=== PATIENT | male | born 1935 | race Caucasian/White ===

== ENCOUNTER 2016-08-29 09:57 | Inpatient (IN) | payer MEDICARE ==
[2016-08-29] MEDS ORDERED: SODIUM CHLORIDE 0.9% 1,000 ML IV STA ×2 (10:46)
--- NOTE | 2016-08-29 11:18 | ED ---
General Adult HPI - General Chief complaint: Recheck/Abnormal Lab/Rx Stated complaint: low BP, syncope Time Seen by Provider: 08/29/16 10:26 Source: family, RN notes reviewed, old records reviewed Mode of arrival: wheelchair Limitations: no limitations - History of Present Illness Initial comments: This is an 80-year-old male here for evaluation. Patient is brought in the ER for evaluation of Altered mental status weakness and falls. Patient suffers from dementia, no recent medications. No known fevers per family. Patient is unable to give accurate history secondary to clinical condition, history obtained from family and chart - Related Data Home Medications Medication Instructions Recorded Confirmed Alfuzosin HCl [Alfuzosin HCl ER] 10 mg PO HS 08/29/16 08/29/16 Apixaban [Eliquis] 2.5 mg PO BID 08/29/16 08/29/16 Atorvastatin Calcium [Lipitor] 20 mg PO HS 08/29/16 08/29/16 Finasteride [Proscar] 5 mg PO DAILY 08/29/16 08/29/16 LORazepam [Ativan] 1 mg PO HS 08/29/16 08/29/16 Lutein 20 mg PO DAILY 08/29/16 08/29/16 Memantine [Namenda] 10 mg PO DAILY 08/29/16 08/29/16 Sertraline HCl [Zoloft] 100 mg PO HS 08/29/16 08/29/16 Allergies Allergy/AdvReac Type Severity Reaction Status Date / Time No Known Allergies Allergy Verified 08/29/16 11:02 Review of Systems ROS Statement: Those systems with pertinent positive or pertinent negative responses have been documented in the HPI. ROS Other: All systems not noted in ROS Statement are negative. Past Medical History Past Medical History: Atrial Fibrillation, Hyperlipidemia Additional Past Medical History / Comment(s): incontinent, dementia History of Any Multi-Drug Resistant Organisms: None Reported Past Surgical History: Ablation Past Psychological History: Depression Smoking Status: Former smoker Past Alcohol Use History: None Reported Past Drug Use History: None Reported General Exam Limitations: no limitations General appearance: alert, in no apparent distress Head exam: Present: atraumatic, normocephalic, normal inspection Eye exam: Present: normal appearance, PERRL, EOMI. Absent: scleral icterus, conjunctival injection, periorbital swelling ENT exam: Present: normal exam, mucous membranes moist Neck exam: Present: normal inspection. Absent: tenderness, meningismus, lymphadenopathy Respiratory exam: Present: normal lung sounds bilaterally. Absent: respiratory distress, wheezes, rales, rhonchi, stridor Cardiovascular Exam: Present: regular rate, normal rhythm, normal heart sounds. Absent: systolic murmur, diastolic murmur, rubs, gallop, clicks GI/Abdominal exam: Present: soft, normal bowel sounds. Absent: distended, tenderness, guarding, rebound, rigid Extremities exam: Present: normal inspection, full ROM, normal capillary refill. Absent: tenderness, pedal edema, joint swelling, calf tenderness Back exam: Present: normal inspection Neurological exam: Present: alert, oriented X3, CN II-XII intact Psychiatric exam: Present: normal affect, normal mood Skin exam: Present: warm, dry, intact, normal color. Absent: rash Course Vital Signs 08/29/16 08/29/16 08/29/16 10:00 10:25 11:03 Temperature 97.6 F Pulse Rate 97 90 79 Respiratory 18 18 16 Rate Blood Pressure 90/63 117/70 120/84 O2 Sat by Pulse 96 100 97 Oximetry 08/29/16 11:54 Temperature Pulse Rate 95 Respiratory 16 Rate Blood Pressure 132/87 O2 Sat by Pulse 97 Oximetry - Reevaluation(s) Reevaluation #1: 08/29/16 12:46 Patient is showing no significant clinical improvement EKG Findings - EKG Comments: EKG Findings:: EKG shows atrial fibrillation rate of 72, QRS 96, QTC 396 Medical Decision Making - Medical Decision Making 80-year-old male here for evaluation. Patient's altered mental status weakness and falls, significant urinary tract infection, will be admitted for IV antibiotics, IV resuscitation and PTOT - Lab Data Result diagrams: 08/29/16 11:17 08/29/16 11:17 Lab Results 08/29/16 08/29/16 08/29/16 Range/Units 11:17 11:17 11:17 WBC 8.5 (3.8-10.6) k/uL RBC 5.12 (4.30-5.90) m/uL Hgb 16.0 (13.0-17.5) gm/dL Hct 47.0 (39.0-53.0) % MCV 91.9 (80.0-100.0) fL MCH 31.2 (25.0-35.0) pg MCHC 34.0 (31.0-37.0) g/dL RDW 14.0 (11.5-15.5) % Plt Count 146 L (150-450) k/uL Neutrophils % 83 % Lymphocytes % 10 % Monocytes % 5 % Eosinophils % 1 % Basophils % 0 % Neutrophils # 7.0 (1.3-7.7) k/uL Lymphocytes # 0.9 L (1.0-4.8) k/uL Monocytes # 0.5 (0-1.0) k/uL Eosinophils # 0.1 (0-0.7) k/uL Basophils # 0.0 (0-0.2) k/uL PT (9.0-12.0) sec INR (<1.1) APTT (22.0-30.0) sec Sodium 141 (137-145) mmol/L Potassium 4.1 (3.5-5.1) mmol/L Chloride 109 H (98-107) mmol/L Carbon Dioxide 23 (22-30) mmol/L Anion Gap 9 mmol/L BUN 19 (9-20) mg/dL Creatinine 0.96 (0.66-1.25) mg/dL Est GFR (MDRD) Af Amer >60 (>60 ml/min/1.73 sqM) Est GFR (MDRD) Non-Af >60 (>60 ml/min/1.73 sqM) Glucose 116 H (74-99) mg/dL Calcium 8.8 (8.4-10.2) mg/dL Phosphorus 3.4 (2.5-4.5) mg/dL Magnesium 2.2 (1.6-2.3) mg/dL Total Bilirubin 1.0 (0.2-1.3) mg/dL AST 16 L (17-59) U/L ALT 26 (21-72) U/L Alkaline Phosphatase 81 (38-126) U/L Total Creatine Kinase 41 L (55-170) U/L CK-MB (CK-2) 1.1 (0.0-2.4) ng/mL CK-MB (CK-2) Rel Index 2.7 Troponin I <0.012 (0.000-0.034) ng/mL Total Protein 6.4 (6.3-8.2) g/dL Albumin 3.7 (3.5-5.0) g/dL Urine Color Urine Appearance (Clear) Urine pH (5.0-8.0) Ur Specific [place] (1.001-1.035) Urine Protein (Negative) Urine Glucose (UA) (Negative) Urine Ketones (Negative) Urine Blood (Negative) Urine Nitrite (Negative) Urine Bilirubin (Negative) Urine Urobilinogen (<2.0) mg/dL Ur Leukocyte Esterase (Negative) Urine RBC (0-5) /hpf Urine WBC (0-5) /hpf Urine WBC Clumps (None) /hpf Ur Squamous Epith Cells (0-4) /hpf Hyaline Casts (0-2) /lpf Urine Mucus (None) /hpf 08/29/16 08/29/16 Range/Units 11:17 11:50 WBC (3.8-10.6) k/uL RBC (4.30-5.90) m/uL Hgb (13.0-17.5) gm/dL Hct (39.0-53.0) % MCV (80.0-100.0) fL MCH (25.0-35.0) pg MCHC (31.0-37.0) g/dL RDW (11.5-15.5) % Plt Count (150-450) k/uL Neutrophils % % Lymphocytes % % Monocytes % % Eosinophils % % Basophils % % Neutrophils # (1.3-7.7) k/uL Lymphocytes # (1.0-4.8) k/uL Monocytes # (0-1.0) k/uL Eosinophils # (0-0.7) k/uL Basophils # (0-0.2) k/uL PT 11.2 (9.0-12.0) sec INR 1.1 (<1.1) APTT 25.3 (22.0-30.0) sec Sodium (137-145) mmol/L Potassium (3.5-5.1) mmol/L Chloride (98-107) mmol/L Carbon Dioxide (22-30) mmol/L Anion Gap mmol/L BUN (9-20) mg/dL Creatinine (0.66-1.25) mg/dL Est GFR (MDRD) Af Amer (>60 ml/min/1.73 sqM) Est GFR (MDRD) Non-Af (>60 ml/min/1.73 sqM) Glucose (74-99) mg/dL Calcium (8.4-10.2) mg/dL Phosphorus (2.5-4.5) mg/dL Magnesium (1.6-2.3) mg/dL Total Bilirubin (0.2-1.3) mg/dL AST (17-59) U/L ALT (21-72) U/L Alkaline Phosphatase (38-126) U/L Total Creatine Kinase (55-170) U/L CK-MB (CK-2) (0.0-2.4) ng/mL CK-MB (CK-2) Rel Index Troponin I (0.000-0.034) ng/mL Total Protein (6.3-8.2) g/dL Albumin (3.5-5.0) g/dL Urine Color Yellow Urine Appearance Cloudy (Clear) Urine pH 5.5 (5.0-8.0) Ur Specific [place] 1.019 (1.001-1.035) Urine Protein Trace H (Negative) Urine Glucose (UA) Negative (Negative) Urine Ketones Negative (Negative) Urine Blood Small H (Negative) Urine Nitrite Negative (Negative) Urine Bilirubin Negative (Negative) Urine Urobilinogen <2.0 (<2.0) mg/dL Ur Leukocyte Esterase Large H (Negative) Urine RBC 46 H (0-5) /hpf Urine WBC >182 H (0-5) /hpf Urine WBC Clumps Few H (None) /hpf Ur Squamous Epith Cells <1 (0-4) /hpf Hyaline Casts 3 H (0-2) /lpf Urine Mucus Few H (None) /hpf - Radiology Data Radiology results: report reviewed, image reviewed Disposition Clinical Impression: UTI (urinary tract infection), Altered mental status Disposition: ADMITTED IP TO THIS HOSP Condition: Fair Referrals: Dm Long MD [Primary Care Provider] - 1-2 days
--- NOTE | 2016-08-29 11:43 | XR ---
EXAMINATION TYPE: XR chest 2V DATE OF EXAM: 08/29/2016 11:38 AM HISTORY: Weakness. REFERENCE: Previous study dated 08/02/2010. FINDINGS: The heart is enlarged. There is some atelectatic change at both lung bases. Pleural spaces appear clear. IMPRESSION: 1. CARDIOMEGALY. 2. BIBASILAR ATELECTASIS.
--- NOTE | 2016-08-29 11:43 | XR ---
EXAMINATION TYPE: XR pelvis AP view DATE OF EXAM: 08/29/2016 11:38 AM CLINICAL HISTORY: pain TECHNIQUE: Single view the pelvis is submitted. FINDINGS: No evidence for fracture, dislocation or bony lesion. Joint spaces are well-preserved. S I joints appear symmetric. IMPRESSION: 1. No acute fracture or dislocation seen. ICD 10 NO FRACTURE, INITIAL EVALUATION
[2016-08-29 11:45] LABS: Basophils % (A) 0 %; CH 32.1; CHCM 35.1; Eosinophils # (A) 0.1 k/uL (0-0.7); Eosinophils % (A) 1 %; HDW 2.84; Luc # (Auto) 0.07; Luc % (Auto) 1; Lymphocytes # (A) 0.9 k/uL (1.0-4.8); Lymphocytes % (A) 10 %; MCH 31.2 pg (25.0-35.0); MCV 91.9 fL (80.0-100.0); Mean Platelet Volume 7.3; Monocytes # (A) 0.5 k/uL (0-1.0); Monocytes % (A) 5 %; Neutrophils % (A) 83 %; RBC 5.12 m/uL (4.30-5.90); WBC 8.5 k/uL (3.8-10.6); WBC (Perox) 8.05
[2016-08-29 11:52] LABS: ALT 26 U/L (21-72); AST 16 U/L (17-59); Alkaline Phosphatase 81 U/L (38-126); Anion Gap 9 mmol/L; Blood Urea Nitrogen 19 mg/dL (9-20); Calcium 8.8 mg/dL (8.4-10.2); Carbon Dioxide 23 mmol/L (22-30); Chloride 109 mmol/L (98-107); Glucose 116 mg/dL (74-99); Magnesium 2.2 mg/dL (1.6-2.3); Non-African American GFR(MDRD) >60 (>60 ml/min/1.73 sqM); Phosphorous 3.4 mg/dL (2.5-4.5); Potassium 4.1 mmol/L (3.5-5.1); Sodium 141 mmol/L (137-145); Total Protein 6.4 g/dL (6.3-8.2)
--- NOTE | 2016-08-29 11:55 | CT ---
EXAMINATION TYPE: CT brain wo con DATE OF EXAM: 08/29/2016 11:46 AM COMPARISON: Previous study dated 08/03/2010 HISTORY: Low blood pressure, syncope CT DLP: 1031.6 mGycm Automated exposure control for dose reduction was used. FINDINGS: There are generalized changes of sulcal prominence and ventriculomegaly, compatible with atrophic pop nge. There is mild, diffuse periventricular white matter lucency, compatible with chronic ischemic ch desiree. There is no acute focal lesion, mass effect or midline shift identified. I do not see evidence of intracranial blood. Visualized portions of the paranasal sinuses and mastoids are clear. No depressed skull fracture is s een. IMPRESSION: 1. NO ACUTE INTRACRANIAL ABNORMALITY. 2. ATROPHIC CHANGE. 3. CHRONIC WHITE MATTER ISCHEMIC CHANGE.
[2016-08-29 12:16] LABS: Creatine Kinase 41 U/L (55-170)
[2016-08-29 12:19] LABS: INR 1.1 (<1.1); Partial Thromboplastin Time 25.3 sec (22.0-30.0); Prothrombin Time 11.2 sec (9.0-12.0)
[2016-08-29 12:27] LABS: Creatine Kinase MB 1.1 ng/mL (0.0-2.4); Troponin I <0.012 ng/mL (0.000-0.034)
[2016-08-29 12:41] LABS: Appearance,Urine Cloudy (Clear); Bilirubin,Urine Negative (Negative); Glucose,Urine (UA) Negative (Negative); Ketones,Urine Negative (Negative); Leukocyte Esterase,Urine Large (Negative); Mucus,Urine Few /hpf; Nitrite,Urine Negative (Negative); PH, Urine 5.5 (5.0-8.0); Particle Count 4869; Protein,Urine Trace (Negative); RBC,Urine 46 /hpf (0-5); Specific Gravity,Urine 1.019 (1.001-1.035); Squamous Epithelial Cell,Urine <1 /hpf (0-4); UA Billing (MACRO vs. MICRO) MICRO; Urobilinogen,Urine <2.0 mg/dL (<2.0); WBC,Urine >182 /hpf (0-5)
[2016-08-29] MEDS ORDERED: SODIUM CHLORIDE 0.9% 1,000 ML IV ONE (12:46)
[2016-08-29 14:30] VITALS: BMI 28.7
--- NOTE | 2016-08-29 20:02 | P.HPIM ---
History of Present Illness H&P Date: 08/29/16 Chief Complaint: falls 80 yr old with h/o of A fib on anticoagulation comes into the hospital after sustaining falls. Pt apparently was independent of all adls till a few months ago, he has gotten progressively worse over the last few weeks. Pt does appear to have a remote diagnosis of dementia according to the report to the RN. Pt was living with his son, who is currently in rehab. Due to falls, and inability to perform his adls, pt was triaged to the hospital. Pt was found to have an abnormal UA. Family stated his personality has changed, and appears more slow. CT scan of head was negative EKG reveals atrial fib. pelvic xray was negative Pt denies having any additional complaints however is non consistent of his answers. Review of Systems ROS unobtainable: due to mental status Past Medical History Past Medical History: Atrial Fibrillation, Hyperlipidemia Additional Past Medical History / Comment(s): incontinent, dementia History of Any Multi-Drug Resistant Organisms: None Reported Past Surgical History: Ablation Additional Past Surgical History / Comment(s): laser eye surgery with lens implants; lower back surgery Past Anesthesia/Blood Transfusion Reactions: No Reported Reaction Past Psychological History: Depression Smoking Status: Former smoker Past Alcohol Use History: None Reported Past Drug Use History: None Reported Medications and Allergies Home Medications Medication Instructions Recorded Confirmed Type Alfuzosin HCl [Alfuzosin HCl ER] 10 mg PO HS 08/29/16 08/29/16 History Apixaban [Eliquis] 2.5 mg PO BID 08/29/16 08/29/16 History Atorvastatin Calcium [Lipitor] 20 mg PO HS 08/29/16 08/29/16 History Finasteride [Proscar] 5 mg PO DAILY 08/29/16 08/29/16 History LORazepam [Ativan] 1 mg PO HS 08/29/16 08/29/16 History Lutein 20 mg PO DAILY 08/29/16 08/29/16 History Memantine [Namenda] 10 mg PO DAILY 08/29/16 08/29/16 History Sertraline HCl [Zoloft] 100 mg PO HS 08/29/16 08/29/16 History Allergies Allergy/AdvReac Type Severity Reaction Status Date / Time No Known Allergies Allergy Verified 08/29/16 11:02 Physical Exam Vitals: Vital Signs Temp Pulse Resp BP Pulse Ox 08/29/16 15:00 97.7 F 91 18 139/89 98 08/29/16 13:45 97.6 F 67 20 142/78 96 Intake and Output 08/29/16 08/29/16 08/29/16 06:59 14:59 22:59 Other: Voiding Method Toilet Diaper Incontinent # Voids 1 1 Weight 85.729 kg Patient Weight 08/30/16 06:59 Weight 85.729 kg - Constitutional General appearance: no acute distress - EENT Eyes: EOMI, PERRLA - Neck Neck: normal ROM - Respiratory Respiratory: bilateral: CTA, negative: dullness, rales, rhonchi, wheezing - Cardiovascular Rhythm: irregularly irregular Abnormal Heart Sounds: systolic murmur - Gastrointestinal General gastrointestinal: normal bowel sounds, no organomegaly, soft - Neurologic Neurologic: CNII-XII intact - Musculoskeletal Musculoskeletal: generalized weakness - Psychiatric answers some questions appropriately alert to place, unable to make medical decisions. Results CBC & Chem 7: 08/29/16 11:17 08/29/16 11:17 Thrombosis Risk Factor Assmnt - Choose All That Apply Any of the Below Risk Factors Present?: No Each Risk Factor Represents 3 Points: Age 75 years or older Thrombosis Risk Factor Assessment Total Risk Factor Score: 3 Thrombosis Risk Factor Assessment Level: Moderate Risk Assessment and Plan Plan: Sepsis sec to UTI, causing mental status changes, acute metabolic encephalopathy chronic atrial fib. HTN Dyslipidemia Thrombocytopenia Remote CVA Cardiomegaly. Plan ivf Pt/OT rocephin await urine cultures telemetry monitering Underlying dementia Hold off on eliquis, as pt has had falls recently, risks outweight benefits. aspirin 325mg to be started repeat cxr in the am DVT prophylaxis.
[2016-08-29] MEDS: ATORVASTATIN 20 MG TAB PO SCH (20:56)
[2016-08-29] MEDS: LORazepam 1 MG TAB PO SCH (20:58)
[2016-08-29] MEDS: SERTRALINE 100 MG TAB PO SCH (20:58)
[2016-08-30] MEDS ORDERED: QUEtiapine 25 MG TAB PO PRN (00:31)
[2016-08-30] MEDS: ENOXAPARIN 40 MG/0.4 ML SYRINGE SQ SCH (09:16)
[2016-08-30] MEDS: FINASTERIDE 5 MG TAB PO SCH (09:16)
[2016-08-30] MEDS: ASPIRIN 325 MG TAB PO SCH (09:16)
[2016-08-30] MEDS: MEMANTINE 10 MG TAB PO SCH (09:17)
--- NOTE | 2016-08-30 09:27 | XR ---
EXAMINATION TYPE: XR chest 1V portable DATE OF EXAM: 08/30/2016 9:03 AM COMPARISON: Prior chest x-ray one August 2016 HISTORY: Difficulty breathing TECHNIQUE: Single frontal view of the chest is obtained. FINDINGS: No significant interval change. Heart size is stable and borderline enlarged. Posterior ri ght seventh rib fracture is stable and likely chronic. No pneumonia, pneumothorax, or pleural effusio n is evident. IMPRESSION: Cardiomegaly is stable.
[2016-08-30 09:30] LABS: ALT 29 U/L (21-72); AST 22 U/L (17-59); Alkaline Phosphatase 86 U/L (38-126); Anion Gap 11 mmol/L; Basophils % (A) 0 %; Blood Urea Nitrogen 14 mg/dL (9-20); CH 31.6; CHCM 34.4; Calcium 8.6 mg/dL (8.4-10.2); Carbon Dioxide 18 mmol/L (22-30); Chloride 115 mmol/L (98-107); Eosinophils # (A) 0.1 k/uL (0-0.7); Eosinophils % (A) 2 %; Glucose 118 mg/dL (74-99); HCT 44.8 % (39.0-53.0); HDW 2.84; Luc # (Auto) 0.11; Luc % (Auto) 1; Lymphocytes # (A) 1.2 k/uL (1.0-4.8); Lymphocytes % (A) 14 %; MCH 30.9 pg (25.0-35.0); MCHC 33.5 g/dL (31.0-37.0); MCV 92.2 fL (80.0-100.0); Monocytes # (A) 0.4 k/uL (0-1.0); Monocytes % (A) 5 %; Neutrophils # (A) 6.7 k/uL (1.3-7.7); Neutrophils % (A) 78 %; Non-African American GFR(MDRD) >60 (>60 ml/min/1.73 sqM); RBC 4.87 m/uL (4.30-5.90); RDW 13.8 % (11.5-15.5); Sodium 144 mmol/L (137-145); Total Bilirubin 0.9 mg/dL (0.2-1.3); Total Protein 6.4 g/dL (6.3-8.2); WBC 8.6 k/uL (3.8-10.6); WBC (Perox) 8.68
--- NOTE | 2016-08-30 11:53 | CDI ---
In responding to this query, please exercise your independent professional judgment. The [facility] Coding Staff and Clinical Documentation Specialists appreciate your assistance in clarifying documentation, maintaining compliance with coding guidelines, accurately documenting patients condition and capturing severity of illness. The fact that a question is asked does not imply that any particular answer is desired or expected. Communication forms are a method of clarifying documentation and are not made part of the Legal Health Record. Thank you in advance for your clarification. Last Revision, June 2015 Zahraa Galindo [address] [place] [address] Documentation Clarification Form Date: 08/30/2016 11:31:00 AM From: Dora Alejandro RN, CDS Admit Date: 08/29/2016 12:47:00 PM Patient Name: Tariq Liriano Visit Number: [id number] Dr. Mendel Ye, Sepsis secondary to UTI is documented in the H&P Patient history/risk factors: 80 y/o History of Dementia, A-fib, Incontinence Clinical Indicators: SIRS Criteria: WBC: 8.5, VS: 97.6 97 18 90/63 96ra, UA Large Leuk Libra, >182 WBC, BUN/CR/GFR 19/0.96/>60 Radiology: CXR: Bibasilar Atelectasis, Cardiomegaly stable, No active process, Other Clinical Indicators: Metabolic Encephalopathy, Urinary Tract Infection Treatment: NS bolus and NS@100 in ED, IV Rocephin, Please document confirmation of the diagnosis of Sepsis in progress note and/or discharge summary, along with its associated clinical indicators (i.e., signs, symptoms, findings, treatments, monitoring). If this condition was ruled out or documented in error, please indicate in your progress notes and/or discharge summary. FYI: Press F11 to launch patient chart Place X here if this finding has no clinical significance, is not applicable or if you are not able to provide any additional documentation. TAMARAD
--- NOTE | 2016-08-30 15:11 | P.PN ---
Subjective 80 yr old with h/o of A fib on anticoagulation comes into the hospital after sustaining falls. Pt apparently was independent of all adls till a few months ago, he has gotten progressively worse over the last few weeks. Pt does appear to have a remote diagnosis of dementia according to the report to the RN. Pt was living with his son, who is currently in rehab. Due to falls, and inability to perform his adls, pt was triaged to the hospital. Pt was found to have an abnormal UA. Family stated his personality has changed, and appears more slow. CT scan of head was negative EKG reveals atrial fib. pelvic xray was negative Pt denies having any additional complaints however is non consistent of his answers. 08/30/16 No new overnight events pt was confused, climbing over the rails However during my eval pt was answering most questions appropriately denies having any complaints. Objective - Vital Signs Vital signs: Vital Signs Temp 98.6 F 08/30/16 07:00 Pulse 77 08/30/16 07:00 Resp 16 08/30/16 07:00 BP 116/58 08/30/16 07:00 Pulse Ox 95 08/30/16 07:00 Intake & Output 08/29/16 08/30/16 08/30/16 18:59 06:59 18:59 Weight 85.729 kg Other: Voiding Method Toilet Toilet Diaper Diaper Incontinent Incontinent # Voids 1 4 2 # Bowel Movements 1 - Exam Physical exam Gen. appearance oriented 3 in no distress does not appear to be in distress neck supple no JVD Lungs good air entry clear to auscultation no rhonchi or wheezing Heart S1-S2 heard regular rate and rhythm no murmurs appreciated Abdomen is soft nontender no organomegaly bowel sounds are intact Neurologically cranial nerves II-12 grossly intact no focal motor or sensory deficits noted Skin no abnormalities appreciated - Labs CBC & Chem 7: 08/30/16 08:45 08/30/16 08:45 Labs: Abnormal Lab Results - Last 24 Hours (Table) 08/30/16 Range/Units 08:45 Chloride 115 H (98-107) mmol/L Carbon Dioxide 18 L (22-30) mmol/L Glucose 118 H (74-99) mg/dL TSH 6.760 H (0.465-4.680) mIU/L Assessment and Plan Plan: Sepsis sec to UTI with concern for mental status changes and weakness causing falls. chronic atrial fib. HTN Dyslipidemia Thrombocytopenia Remote CVA Cardiomegaly. Plan aspirin 325mg to be started HOld off on eliquis. multiple falls recently. change seroquel 50mg bedtime chest x-ray reviewed DC IV fluids and encourage oral intake PT OT continue with IV antibiotics patient's clinical status appears somewhat improved is able to tolerate ambulation and discharge in the next 24 hours DVT prophylaxis.
[2016-08-30] MEDS: LORazepam 0.5 MG TAB PO PRN (16:39)
[2016-08-30] MEDS ORDERED: QUEtiapine 50 MG TAB PO PRN (21:00)
[2016-08-30] MEDS: ATORVASTATIN 20 MG TAB PO SCH (21:39)
[2016-08-30] MEDS: SERTRALINE 100 MG TAB PO SCH (21:39)
[2016-08-30] MEDS: LORazepam 1 MG TAB PO SCH (21:39)
[2016-08-30] MEDS ORDERED: HALOPERIDOL LACTATE 5 MG/ML 1 ML VIAL IM PRN (22:51)
[2016-08-31] MEDS: LORazepam 0.5 MG TAB PO PRN (01:46)
[2016-08-31] MEDS: MEMANTINE 10 MG TAB PO SCH (09:23)
[2016-08-31] MEDS: FINASTERIDE 5 MG TAB PO SCH (09:23)
[2016-08-31] MEDS: ASPIRIN 325 MG TAB PO SCH (09:23)
[2016-08-31] MEDS: ENOXAPARIN 40 MG/0.4 ML SYRINGE SQ SCH (09:23)
[2016-08-31 09:40] LABS: ALT 32 U/L (21-72); AST 22 U/L (17-59); Alkaline Phosphatase 92 U/L (38-126); Anion Gap 8 mmol/L; Blood Urea Nitrogen 14 mg/dL (9-20); Calcium 8.8 mg/dL (8.4-10.2); Carbon Dioxide 22 mmol/L (22-30); Chloride 112 mmol/L (98-107); Glucose 96 mg/dL (74-99); Non-African American GFR(MDRD) >60 (>60 ml/min/1.73 sqM); Potassium 3.8 mmol/L (3.5-5.1); Sodium 142 mmol/L (137-145); Total Protein 6.5 g/dL (6.3-8.2)
--- NOTE | 2016-08-31 14:42 | P.CN ---
Psychiatric Consult - . Consult date: 08/31/16 Consult:: IDENTIFYING DATA: Mr. Liriano is 80-year-old male has a history of a dementia. He was admitted to medicine service with increasing confusion and falling. Medicine consulted psychiatry for evaluation of agitation associated with his dementia. HISTORY OF PRESENT ILLNESS: I reviewed the medical record and attempted to interview Mr. Liriano. He was confused and unable to give an explanation for his hospitalization. He was unable to provide much information about his past medical history. He talked about having "something in my veins .... not drugs. I don't use drugs." I called his granddaughter Jj Hinds. I also spoke with his son, Rony Liriano, who had power of deputy county attorney. His granddaughter stated that he has a history of dementia diagnosed about 5 years ago. He has shown more impairment in self-care over the last 3 years. Her father is the primary mathematics professor is unable to provide care and supervision due to his own problems and his father's worsening confusion and agitation. Her father developed an alcohol problem and will be admitted [facility] for alcohol rehabilitation on 09/06/16. Her father was the primary mathematics professor but she would assist in caring for her grandfather when she was not working. Rony complained of his father's worsening disability and confusion. For example, he complained that his father recently placed one of his hearing aids in his mouth rather than in his ear. Jj complained that her grandfather appeared more confused and was falling when the neurologist increased the dose of Seroquel from 25 to 50 mg. The family's long- term plan is have him placed in a dementia unit. PAST PSYCHIATRIC HISTORY: His daughter stated that he has a history of depression and has taken person Zoloft "for many years". However, he is never received mental health treatment has had no psychiatric hospitalizations. SUBSTANCE USE HISTORY: She denied that he has a problem alcohol or substance use. FAMILY PSYCHIATRIC/SUBSTANCE USE HISTORY: One aunt by suicide in another aunt has a diagnosis of bipolar illness. SOCIAL HISTORY: He graduated from high school. His about 10 years ago. They had 6 children; One in infancy. He is retired and receives Social Security income. MENTAL STATUS EXAM: He presented as a casually groomed elderly male who was pleasant on approach. He was very hard of hearing and had difficulty understanding the interview questions. He made eye contact and appeared to attend to interview. He had no distinguishing features or prominent physical abnormalities. He had a blunted but bright facial expression. He is alert and oriented to person only. He showed no abnormality of psychomotor activity. He had no abnormal involuntary movements. I did not evaluate his gait. His speech was spontaneous with decreased rate and volume. He had no articulation difficulties. His affect was stable and appropriate. She did not express suicidal homicidal ideation. He denied feeling hopeless, helpless or worthless. He did not express ideas reference, paranoid ideation or delusional thoughts. His thinking was concrete and associations were coherent. We completed the Mini-Mental Status Examination. His total score was 15 consistent with severe cognitive impairment. He did not know the year, season, date, day of the week or month. He uses state, county, town and hospital ( although [facility] He was able to retain the name of 3 objects (apple, pen and umbrella) he did not remember the items after distraction exercise. He was unable to spell the word "world" backwards. He named to simple objects (pen and tea). He was unable to repeat the phrase "no if's, and said, "lots." He was able to follow three-step command. He read and followed the written instruction (close her eyes). He wrote a sentence with a subacute infarct. 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 He is showing increasing confusion at home with periods of agitation. His family is unable to safely monitor at home and are looking for placement in a long-term program. DIAGNOSIS: Deejay. 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 Discontinue lorazepam since benzodiazepines can worsen agitation and confusion and dementia patients. Namenda may be titrated up to 20 mg per day in divided doses. Consider changing Seroquel to a less sedating antipsychotic such as Zyprexa 2.5 mg at bedtime. Limit dosing of haloperidol since that may increase confusion. I would concur that he is in need of residential services. Thank you for the consult. 08/31/16 13:58
--- NOTE | 2016-08-31 16:07 | P.PN ---
Subjective 80 yr old with h/o of A fib on anticoagulation comes into the hospital after sustaining falls. Pt apparently was independent of all adls till a few months ago, he has gotten progressively worse over the last few weeks. Pt does appear to have a remote diagnosis of dementia according to the report to the RN. Pt was living with his son, who is currently in rehab. Due to falls, and inability to perform his adls, pt was triaged to the hospital. Pt was found to have an abnormal UA. Family stated his personality has changed, and appears more slow. CT scan of head was negative EKG reveals atrial fib. pelvic xray was negative Pt denies having any additional complaints however is non consistent of his answers. 08/30/16 No new overnight events pt was confused, climbing over the rails However during my eval pt was answering most questions appropriately denies having any complaints. 08/31/2016 Patient currently was having more episodes of confusion appears to be delirium at this time was given a dose of IM haloperidol overnight a sitter was at bedside denies having any additional complaints patient is able to state that he is at [facility] Objective - Vital Signs Vital signs: Vital Signs Temp 97.8 F 08/31/16 15:00 Pulse 111 H 08/31/16 15:00 Resp 20 08/31/16 15:00 BP 132/74 08/31/16 15:00 Pulse Ox 97 08/31/16 15:00 Intake & Output 08/30/16 08/31/16 08/31/16 18:59 06:59 18:59 Intake Total 500 Balance 500 Intake: Oral 500 Other: Voiding Method Toilet Diaper Incontinent # Voids 2 3 3 # Bowel Movements 1 1 - Exam Physical exam Gen. appearance oriented time and place in no distress does not appear to be in distress neck supple no JVD Lungs good air entry clear to auscultation no rhonchi or wheezing Heart S1-S2 heard regular rate and rhythm no murmurs appreciated Abdomen is soft nontender no organomegaly bowel sounds are intact Neurologically cranial nerves II-12 grossly intact no focal motor or sensory deficits noted Skin no abnormalities appreciated - Labs CBC & Chem 7: 08/30/16 08:45 08/31/16 08:44 Labs: Abnormal Lab Results - Last 24 Hours (Table) 08/31/16 Range/Units 08:44 Chloride 112 H (98-107) mmol/L Assessment and Plan Plan: Sepsis sec to UTI with concern for mental status changes and weakness causing falls. chronic atrial fib. HTN Dyslipidemia Thrombocytopenia Remote CVA Cardiomegaly. Plan aspirin 325mg to be started HOld off on eliquis. multiple falls recently. Continue with psychiatry recommendations. Day with antibiotics will likely discharge the patient to NH in the next 24 hours.
[2016-08-31] MEDS ORDERED: MELATONIN 3 MG TABLET PO SCH (21:00)
[2016-08-31] MEDS ORDERED: OLANZapine 2.5 MG TAB PO SCH (21:00)
[2016-08-31] MEDS: ATORVASTATIN 20 MG TAB PO SCH (21:39)
[2016-08-31] MEDS: SERTRALINE 100 MG TAB PO SCH (21:40)
[2016-08-31 22:54] VITALS: RESP 16
[2016-09-01 07:29] VITALS: BP 159/86; PULSE 87; TEMP 97.7
[2016-09-01] MEDS: FINASTERIDE 5 MG TAB PO SCH (09:14)
[2016-09-01] MEDS: MEMANTINE 10 MG TAB PO SCH (09:14)
[2016-09-01] MEDS: ASPIRIN 325 MG TAB PO SCH (09:15)
[2016-09-01] MEDS: ENOXAPARIN 40 MG/0.4 ML SYRINGE SQ SCH (09:15)
--- NOTE | 2016-09-01 13:38 | P.DS ---
Providers Date of admission: 08/29/16 12:47 Attending physician: Ron Hallman Consults: 08/31/16 10:59 Consult Physician Routine Consulting Provider: Jerardo Cotton Reason/Comments: behaviors as associated with dementia. Do you want consulting provider notified?: Yes Primary care physician: [facility] Hospital Course: 80 yr old with h/o of A fib on anticoagulation comes into the hospital after sustaining falls. Pt apparently was independent of all adls till a few months ago, he has gotten progressively worse over the last few weeks. Pt does appear to have a remote diagnosis of dementia according to the report to the RN. Pt was living with his son, who is currently in rehab. Due to falls, and inability to perform his adls, pt was triaged to the hospital. Pt was found to have an abnormal UA. Family stated his personality has changed, and appears more slow. CT scan of head was negative EKG reveals atrial fib. pelvic xray was negative Pt denies having any additional complaints however is non consistent of his answers. 08/30/16 No new overnight events pt was confused, climbing over the rails However during my eval pt was answering most questions appropriately denies having any complaints. 08/31/2016 Patient currently was having more episodes of confusion appears to be delirium at this time was given a dose of IM haloperidol overnight a sitter was at bedside denies having any additional complaints patient is able to state that he is at [facility] - Exam Physical exam Gen. appearance oriented time and place in no distress does not appear to be in distress neck supple no JVD Lungs good air entry clear to auscultation no rhonchi or wheezing Heart S1-S2 heard regular rate and rhythm no murmurs appreciated Abdomen is soft nontender no organomegaly bowel sounds are intact Neurologically cranial nerves II-12 grossly intact no focal motor or sensory deficits noted Skin no abnormalities appreciated Assessment and Plan Plan: Sepsis sec to UTI with concern for mental status changes and weakness causing falls. T course of antibiotics with Ceftin patient appears to be improving would benefit from rehab chronic atrial fib. HTN Dyslipidemia Thrombocytopenia Remote CVA Cardiomegaly. Concern for underlying dementia, diagnosis or eval after completion of tx for Cystitis Patient Condition at Discharge: Fair Plan - Discharge Summary New Discharge Prescriptions: Cefuroxime [Ceftin] 250 mg PO BID #10 tablet OLANZapine [ZyPREXA] 2.5 mg PO HS #30 tab Discharge Medication List Atorvastatin Calcium [Lipitor] 20 mg PO HS 08/29/16 [History] Finasteride [Proscar] 5 mg PO DAILY 08/29/16 [History] Lutein 20 mg PO DAILY 08/29/16 [History] Sertraline HCl [Zoloft] 100 mg PO HS 08/29/16 [History] Aspirin 325 mg PO DAILY tab 08/31/16 [Rx] Cefuroxime [Ceftin] 250 mg PO BID #10 tablet 08/31/16 [Rx] Melatonin 3 mg PO HS tablet 09/01/16 [Rx] Memantine [Namenda] 10 mg PO DAILY #0 09/01/16 [Rx] OLANZapine [ZyPREXA] 2.5 mg PO HS #30 tab 09/01/16 [Rx] Sertraline [Zoloft] 100 mg PO HS tab 09/01/16 [Rx] Follow up Appointment(s)/Referral(s): Dm Long MD [Primary Care Provider] - 1-2 days Patient Instructions/Handouts: Urinary Tract Infection in Men (DC), Alzheimer Disease (DC) Activity/Diet/Wound Care/Special Instructions: Ambulate with assistance and walker, fall precautions. Cardiac diet. Follow up with psychiatry at [facility] [place]. Discharge Disposition: TRANSFER TO SNF/ECF
== END 2016-09-01 14:54 | DRG 871 ==
LOC: EC 09:57 → 4MS4W 12:47
PROVIDERS: ADMIT Hospitalist; ATTEND Hospitalist
DX: A41.9 Sepsis, unspecified organism (principal); G93.41 Metabolic encephalopathy; D69.6 Thrombocytopenia, unspecified; I11.9 Hypertensive heart disease without heart failure; G30.9 Alzheimer's disease, unspecified; F05 Delirium due to known physiological condition; N39.0 Urinary tract infection, site not specified; F32.9 Major depressive disorder, single episode, unspecified; F02.81 Dementia in other diseases classified elsewhere, unspecified severity, with behavioral disturbance; I48.2 Chronic atrial fibrillation; R53.1 Weakness; E78.5 Hyperlipidemia, unspecified; R29.6 Repeated falls; H91.90 Unspecified hearing loss, unspecified ear; R32 Unspecified urinary incontinence; Z87.891 Personal history of nicotine dependence; Z79.01 Long term (current) use of anticoagulants; Z79.899 Other long term (current) drug therapy; Z86.73 Personal history of transient ischemic attack (TIA), and cerebral infarction without residual deficits; Z81.8 Family history of other mental and behavioral disorders; Z81.1 Family history of alcohol abuse and dependence; Z96.1 Presence of intraocular lens; Z91.81 History of falling
CPT/HCPCS: 36415; 70450; 71010; 71020; 72170; 80053; 81001; 82550; 82553; 83735; 84100; 84439; 84443; 84484; 85025; 85610; 85730; 87086; 93005; 96360; 96361; 99285